=== PATIENT | male | born 1985 | race Caucasian/White ===

== ENCOUNTER 2018-03-31 20:42 | Emergency (ER) | payer MEDICAID ==
[~2018-03-31] VITALS: Ht 180.3 cm; Wt 75.7 kg
[~2018-03-31 20:42] MED LIST: AGM875T PO; BSP10T PO; CEPH500C PO; CYCL10TA9 PO; ESCT10T; FLUO40CA12 PO; IBUP800T26 PO; RSP1T PO; ZEGRID
--- OUTSIDE RECORDS SUMMARY | 2018-03-31 20:47 | XMS REPORT | Continuity of Care Document ---
Author Author [facility] Organization [facility] Address Unknown Phone Unavailable Care Team Providers Care Security Systems Integrator Name Role Phone LINETTE GARAY DO PP Insurance Providers Payer Name Policy Number Subscriber Name Relationship [facility] [id number] [employer] 01 Self / Same As Patient Advance Directives Directive Response Recorded Date Advance Directives N 07/27/12 6:11pm Health Care Power of Automotive Electrician Helper N 07/27/12 6:11pm Organ Donor N 07/27/12 6:11pm Problems No Known Problems or Medical conditions. Family History History Response Recorded Date/Time Hx Family Cancer N 09/17/06 7:06pm Hx Family Cardiac Disorders N 09/17/06 7: 06pm Social History History Response Recorded Date/Time Alcohol Use Rarely Uses 07/27/12 7:48pm Recreational Drug Use Y MARIJUANA 7:48pm Allergies, Adverse Reactions, Alerts Allergen Type Severity Reaction Last Updated NKANo Known Allergies Allergy Unknown 09/17/06 Medications Medication Dose Units Route Sig Qty Days Amoxicillin/Clavulanate Potassium (Augmentin 875-125 Tablet) 1 Tab PO BID 7 Risperidone (Risperdal) 1 Mg PO HS Buspirone HCl (Buspar) 1 Tab PO BID 90 Fluoxetine HCl (Prozac) 40 Mg PO DAILY Cephalexin Monohydrate (Cephalexin) 1 Each PO TID 15 Response Recorded Date/Time Status not known Unknown Results Test Date Result Interp. Ref. Range Acetaminophen Level September 17, 2006 4:10pm < 10 UG/ML L 10.0-30.0 Alanine Aminotransferase (ALT/SGPT) September 18, 2006 4:44am 25 U/L L 30-65 Albumin September 18, 2006 4:44am 2.7 G/DL L 3.4-5.0 Alkaline Phosphatase September 18, 2006 4:44am 65 U/L N 50-136 Aspartate Amino Transf (AST/SGOT) September 18, 2006 4:44am 11 U/L L 15-37 BUN/Creatinine Ratio July 31, 2007 12:30pm 16 - Band Neutrophils September 17, 2006 4:10pm 2 % - Basophils # (Auto) July 31, 2007 12:30pm 0.0 10^3/uL N 0.0-0.1 Basophils % (Manual) September 17, 2006 4:10pm 0 % - Basophils (%) (Auto) July 31, 2007 12:30pm 0 % N 0-10 Blood Urea Nitrogen July 31, 2007 12:30pm 18 MG/DL N 7-18 Calcium Level July 31, 2007 12:30pm 9.7 MG/DL N 8.5-10.1 Carbon Dioxide Level July 31, 2007 12:30pm 21 MMOL/L N 21-32 Chloride Level July 31, 2007 12:30pm 100 MMOL/L L 101-110 Creatinine July 31, 2007 12:30pm 1.1 MG /DL N 0.6-1.3 Eosinophils # (Auto) July 31, 2007 12:30pm 0.0 10^3/uL N 0.0-0.3 Eosinophils % (Manual) September 17, 2006 4:10pm 3 % - Eosinophils (%) (Auto) July 31, 2007 12:30pm 0 % N 0-10 Glucose Level July 31, 2007 12:30pm 110 MG/DL N 70-126 Hematocrit July 31, 2007 12:30pm 46 % N 40-54 Hemoglobin July 31, 2007 12:30pm 16.8 G /DL N 13.3-17.7 Lipase July 31, 2007 12:30pm 182 U/L N 114-286 Lymphocytes # (Auto) July 31, 2007 12:30pm 2.5 X 10^3 N 1.0-4.0 Lymphocytes % (Manual) September 17, 2006 4:10pm 27 % - Lymphocytes (%) (Auto) July 31, 2007 12:30pm 21 % N 12-44 Magnesium Level September 17, 2006 4:10pm 2.5 MG/DL H 1.8-2.4 Mean Corpuscular Hemoglobin July 31, 2007 12:30pm 30 PG N 25-34 Mean Corpuscular Hemoglobin Concent July 31, 2007 12:30pm 36 G/DL N 32-36 Mean Corpuscular Volume July 31, 2007 12:30pm 83 FL N 80-99 Mean Platelet Volume July 31, 2007 12:30pm 9.6 FL N 7.4-10.4 Monocytes # (Auto) July 31, 2007 12:30pm 0.6 X 10^3 N 0.0-1.0 Monocytes % (Manual) September 17, 2006 4:10pm 6 % - Monocytes (%) (Auto) July 31, 2007 12:30pm 5 % N 0-12 Myoglobin September 17, 2006 4:10pm 85 UG/L N 10-92 Neutrophils # (Auto) July 31, 2007 12:30pm 8.7 X 10^3 H 1.8-7.8 Neutrophils % (Manual) September 17, 2006 4:10pm 50 % - Neutrophils (%) (Auto) July 31, 2007 12:30pm 74 % N 42-75 Platelet Count July 31, 2007 12:30pm 371 10^3/uL N 130-400 Potassium Level July 31, 2007 12:30pm 3.5 MMOL/L L 3.6-5.0 Reactive Lymphocytes September 17, 2006 4:10pm 12 % - Red Blood Count July 31, 2007 12:30pm 5.61 10^6/uL N 4.35-5.85 Red Cell Distribution Width July 31, 2007 12:30pm 13.1 % N 10.0-14.5 Salicylates Level September 17, 2006 4:10pm 1.6 MG/DL L 2.8-20.0 Sodium Level July 31, 2007 12:30pm 137 MMOL/L N 135-145 Tear Drop Cells September 17, 2006 4:10pm Slight - Total Bilirubin September 18, 2006 4:44am 0.3 MG/DL N 0.0-1.0 Total Protein September 18, 2006 4:44am 4.9 G /DL L 6.4-8.2 Troponin I September 18, 2006 4:44am < 0.10 MG/ML 0.00-0.10 Ur Tricyclic Antidepressants Screen September 18, 2006 2:50am Negative - Urine Amphetamines Screen September 18, 2006 2:50am Negative - Urine Barbiturates Screen September 18, 2006 2:50am Negative - Urine Benzodiazepines Screen September 18, 2006 2:50am Negative - Urine Cocaine Screen September 18, 2006 2:50am Negative - Urine Methamphetamines Screen September 18, 2006 2:50am Negative - Urine Opiates Screen September 18, 2006 2:50am Negative - Urine Phencyclidine Screen September 18, 2006 2:50am Negative - Urine Propoxyphene Screen September 18, 2006 2:50am Negative - White Blood Count July 31, 2007 12:30pm 11.9 10^3/uL H 4.3-11.0 Pathology Consult Specimen September 17, 2006 4:10pm See report - Estimat Glomerular Filtration Rate July 31, 2007 12:30pm > 60 - Urine Oxycodone Screen September 18, 2006 2:50am Negative - Urine Methadone Screen September 18, 2006 2:50am Negative - Creatine Kinase September 18, 2006 4:44am 89 mg/dl N 21-170 Urine Cannabinoids Screen September 18, 2006 2:50am Positive - Procedures Procedure Code Date ESOPHAGOGASTRODUODENOSCOPY [EGD] W/CLOSED BIOPSY 45.16 09/18/06 Encounters Encounter Location Date/Time Registered Emergency Room [facility] 07/27/12 6:05pm Departed Emergency Room [facility] 05/23 2:32pm Discharged Inpatient [facility] 12: 00am
--- OUTSIDE RECORDS SUMMARY | 2018-03-31 20:47 | XMS REPORT | Continuity of Care Document ---
Author Author Former[facility] Address Unknown Phone Unavailable Allergies Active Description Code Type Severity Reaction Onset Reported/Identified Relationship to Patient Clinical Status Yes No Known Drug Allergies [id number] Miscellaneous Allergy Moderate N/A Yes NKDA N/A N/A Yes NKANo Known Allergies NKA Miscellaneous Allergy Unknown N/A 09/17/2006 Medications Medication Packaging Start Date Stop Date Route Dosage Sig RISPERDAL ORAL 12/25/2015 [facility], REMERON ORAL 12/25/2015 [facility], Problems Date Dx Coded Attending Type Code Diagnosis Diagnosed By 01/08/2009 DAMARI ROONEY DO 296.80 MO BIPOLAR NOS 01/08/2009 DAMARI ROONEY DO 300.00 AN ANXIETY UNSPEC 01/08/2009 DAMARI ROONEY DO 296.80 MO BIPOLAR NOS 01/08/2009 DAMARI ROONEY DO 300.00 AN ANXIETY UNSPEC 01/31/2009 DAMARI ROONEY DO 296.89 MO BIPOLAR II 01/31/2009 DAMARI ROONEY DO 296.89 MO BIPOLAR II 02/07/2011 DAMARI ROONEY DO 296.90 MOOD DISORDER 02/07/2011 DAMARI ROONEY DO 300.23 AN SOCIAL PHOBIA 02/07/2011 DAMARI ROONEY DO 307.47 SI DYSSOMNIA NOS 02/07/2011 DAMARI ROONEY DO 296.90 MOOD DISORDER 02/07/2011 DAMARI ROONEY DO 300.23 AN SOCIAL PHOBIA 02/07/2011 DAMARI ROONEY DO 307.47 SI DYSSOMNIA NOS 02/18/2011 DAMARI ROONEY DO 305.00 ALCOHOL ABUSE UNSPEC 02/18/2011 DAMARI ROONEY DO 305.20 CANNABIS ABUSE 02/18/2011 DAMARI ROONEY DO 312.30 I IMPULSE CONTROL DISORDER NOS 02/18/2011 DAMARI ROONEY DO 305.00 ALCOHOL ABUSE UNSPEC 02/18/2011 DAMARI ROONEY DO 305.20 CANNABIS ABUSE 02/18/2011 DAMARI ROONEY DO 312.30 I IMPULSE CONTROL DISORDER NOS 06/29/2011 DAMARI ROONEY DO 296.42 MO BIPOLAR I MANIC MODERATE 06/29/2011 DAMARI ROONEY DO 296.42 MO BIPOLAR I MANIC MODERATE 07/08/2011 DAMARI ROONEY DO 296.41 MO BIPOLAR I MANIC MILD 07/08/2011 DAMARI ROONEY DO 296.41 MO BIPOLAR I MANIC MILD 07/15/2011 DAMARI ROONEY DO 296.52 MO BIPOLAR I DEPRESSED MODERATE 07/15/2011 DAMARI ROONEY DO F 304.80 SA POLYSUB DEP 07/15/2011 DAMARI ROONEY DO 296.52 MO BIPOLAR I DEPRESSED MODERATE 07/15/2011 DAMARI ROONEY DO 304.80 SA POLYSUB DEP 08/11/2011 DAMARI ROONEY DO 296.60 MO BIPOLAR I MIXED UNSPECIFIED 08/11/2011 DAMARI ROONEY DO 296.60 MO BIPOLAR I MIXED UNSPECIFIED 08/18/2011 DAMARI ROONEY DO 461.9 SINUSITIS ACUTE 08/18/2011 DAMARI ROONEY DO 530.81 GERD 08/18/2011 DAMARI ROONEY DO 706.2 SEBACEOUS CYST 08/18/2011 DAMARI ROONEY DO 461.9 SINUSITIS ACUTE 08/18/2011 DAMARI ROONEY DO 530.81 GERD 08/18/2011 DAMARI ROONEY DO 706.2 SEBACEOUS CYST 09/24/2011 DAMARI ROONEY DO 303.90 OTHER AND UNSPECIFIED ALCOHOL DEPENDENCE UNSPECIFIED DRINKING BEHAVIOR 09/24/2011 DAMARI ROONEY DO 303.90 OTHER AND UNSPECIFIED ALCOHOL DEPENDENCE UNSPECIFIED DRINKING BEHAVIOR 11/19/2011 DAMARI ROONEY DO 296.50 MO BIPOLAR I DEPRESSED UNSPECIFIED 11/19/2011 DAMARI ROONEY DO 296.50 MO BIPOLAR I DEPRESSED UNSPECIFIED 02/16/2012 DAMARI ROONEY DO V58.69 MEDICATION HIGH RISK 02/16/2012 DAMARI ROONEY DO V58.69 MEDICATION HIGH RISK Procedures Code Description [place] [address] ROUTINE VENIPUNCTURE 02/16/2012 01573 INR (IN HOUSE) 02/16/2012 26375 CBC 02/16/2012 00176 LIVER PANEL (LFT) 02/16/2012 82619 LIPID PANEL 02/16/2012 3068424 GFR CALC (RESULT ONLY) 02/16/2012 25169 RENAL PROFILE 02/17/2012 19833 TSH 02/17/2012 59093 ETHANOL SCREEN 02/17/2012 68317 VITAMIN D 25-HYDROXY (D2,D3 , TOTAL) 02/17/2012 93654 DRUG BLOOD SCREEN 02/19/2012 33108 PSYCH PHARM MGMT 02/19/2012 80858 UA W/ CULTURE IF INDICATED 02/26/2012 47206 URINE DRUG SCREEN (IN-HOUSE ) 03/02/2012 Results Test Result Range CBC NO DIFF - 12/24/15 21:34 FINGER STICK NO WBC 9.6 10^3uL 4.0 - 11.0 RBC 5.13 10^6uL 4.20 - 5.40 HEMOGLOBIN 15.4 g/dL 13.5 - 16.0 HEMATOCRIT 45.7 % 35.0 - 58.0 MCV 89.1 fl 78.0 - 95.0 MCH 30.0 pg 25.0 - 35.0 MCHC 33.7 g/dL 32.0 - 36.0 RDW 12.6 % 11.5 - 14.5 PLATELETS 360 10^3uL 130 - 400 CBCNODIFF COMP METABOLIC PROFILE - 12/24/15 21:34 COMPMETABOLICPROFILE FASTING SPECIMEN? NO FINGER STICK NO SODIUM 141 mmol/L 136 - 145 POTASSIUM 3.7 mmol/L 3.5 - 4.8 CHLORIDE 104 mmol/L 98 - 107 TOTAL CO2 28 mmol/L 21 - 32 GLUCOSE 100 mg/dL 65 - 110 BUN 16 mg/dL 7 - 18 CREATININE 1.2 mg/dL 0.8 - 1.1 TOTAL BILI 0.5 mg/dL 0.0 - 1.0 DIRECT BILI 0.1 mg/dL 0.0 - 0.3 INDIRECT BILI 0.4 mg/dl 0.1 - 1.0 ALKALINE PHOS 74 U/L 50 - 136 SGPT/ALT 26 U/L 12 - 78 SGOT/AST 17 U/L 15 - 45 TOTAL PROTEIN 7.5 g/dL 6.4 - 8.2 ALBUMIN 4.2 g/dL 3.4 - 5.6 CALCIUM 9.0 mg/dL 8.5 - 10.0 AGE 30 YEARS GFR 75 ml/min/1.7 eGFR >60 mL/min/1.7 GFR >60 mL/min/1.7 TROP I - 12/24/15 21:34 TROP I <0.02 ng/ml 0.00 - 0.06 Encounters ACCT No. Visit Date/Time Discharge Status Pt. Type Provider Facility Loc./Unit Complaint [id number] 03/25/2012 13:30:00 03/25/2012 23:59:59 [place] [id number] 02/16/2012 12:01:00 02/16/2012 23:59:59 CLS Outpatient DAMARI ROONEY DO [id number] 10/10/2013 12:13:00 10/10/2013 12:54:00 DIS Emergency [id number] 07/27/2012 18:05:00 07/27/2012 20:08:00 DIS Emergency [id number] 03/31/2018 20:43:00 ACT Emergency RYAN LAND APRN [facility] ER FEET SWELLING,CP,ANXIETY [id number] 12/30/2015 08:52:20 12/30/2015 08:52:20 DIS Outpatient [id number] 12/24/2015 20:38:00 12/24/2015 22:20:00 DIS Emergency JOSS ORTIZ [facility] 042
[2018-03-31 21:20] LABS: BASOPHILS % (AUTO) 0 % (0-10); EOSINOPHILS # (AUTO) 0.6 10^3/uL (0.0-0.3); EOSINOPHILS % (AUTO) 7 % (0-10); HEMATOCRIT 43 % (40-54); HEMOGLOBIN 14.7 G/DL (13.3-17.7); LYMPHOCYTES # (AUTO) 2.4 X 10^3 (1.0-4.0); LYMPHOCYTES % (AUTO) 25 % (12-44); MEAN CORPUSCULAR HEMOGLOBIN 30 PG (25-34); MEAN CORPUSCULAR HGB CONC 34 G/DL (32-36); MEAN CORPUSCULAR VOLUME 88 FL (80-99); MEAN PLATELET VOLUME 8.3 FL (7.4-10.4); MONOCYTES # (AUTO) 1.1 X 10^3 (0.0-1.0); MONOCYTES % (AUTO) 11 % (0-12); NEUTROPHILS # (AUTO) 5.6 X 10^3 (1.8-7.8); NEUTROPHILS % (AUTO) 57 % (42-75); PLATELET COUNT 407 10^3/uL (130-400); RED BLOOD COUNT 4.96 10^6/uL (4.35-5.85); RED CELL DISTRIBUTION WIDTH 12.9 % (10.0-14.5); WHITE BLOOD COUNT 9.7 10^3/uL (4.3-11.0)
--- NOTE | 2018-03-31 21:23 | ED Lower Extremity ---
General Chief Complaint: Lower Extremity Stated Complaint: FEET SWELLING,CP,ANXIETY Nursing Triage Note: BILATERAL LEG PAIN/SWELLING X3 DAYS, REFLUX, CHEST WALL PAIN X3 WEEKS Nursing Sepsis Screen: No Definite Risk Source: patient Exam Limitations: no limitations History of Present Illness Date Seen by Provider: Mar 31, 2018 Time Seen by Provider: 21:19 Initial Comments To ER with reports of bilateral feet redness and swelling for 3 days. No known injury or preceding event. No fevers but he does have chills. He states that he has a chronic cough unchanged. He is a smoker. He reports acid reflux his whole life but worse for the past several weeks and left sided chest wall pain separate from the acid reflux also present for 3 weeks. That pain is intermittent and lasts for about a second at a time and is described as a sharp pain. He cannot identify any modifying factors. He denies any IV drug use Onset: other Severity: moderate Pain/Injury Location: bilateral foot Method of Injury: unknown Allergies and Home Medications Allergies Coded Allergies: NKANo Known Allergies (Verified Allergy, Unknown, 09/17/06) Home Medications Azithromycin 250 Mg Tablet, 250 MG PO UD TAKE 2 TABLETS TODAY, THEN TAKE 1 TABLET DAILY FOR 4 MORE DAYS Prescribed by: RYAN LAND on 03/31/18 2333 Cephalexin 500 Mg Capsule, 500 MG PO Q6H Prescribed by: RYAN LAND on 03/31/18 2306 Patient Home Medication List Home Medication List Reviewed: Yes Review of Systems Constitutional: see HPI EENTM: see HPI Respiratory: no symptoms reported Cardiovascular: see HPI, chest pain; No Hx of Intervention, No palpitations, No syncope, No vascular heart diseas Genitourinary: no symptoms reported Musculoskeletal: see HPI Skin: see HPI Past Jpezeie-Xgmewb-Lhmyik Hx Patient Social History Alcohol Use: Denies Use Recreational Drug Use: Yes Drug of Choice: CANNIBUS/METH Smoking Status: Current Everyday Smoker Type Used: Cigarettes 2nd Hand Smoke Exposure: Yes Recent Foreign Travel: No Contact w/Someone Who Travel: No Recent Infectious Disease Expo: No Recent Hopitalizations: No Immunizations Up To Date Tetanus Booster (TDap): Less than 5yrs Seasonal Allergies Seasonal Allergies: No Past Medical History Surgeries: Yes Orthopedic Respiratory: No Cardiac: No Neurological: No Reproductive Disorders: No Genitourinary: No Gastrointestinal: Yes Gastroesophageal Reflux, Ulcer Musculoskeletal: No Endocrine: No HEENT: No Cancer: No Psychosocial: Yes Anxiety, Depression Integumentary: No Blood Disorders: No Family Medical History No Pertinent Family Hx Physical Exam Vital Signs Vital Signs - First Documented 03/31/18 20:45 Temp 97.2 Pulse 108 Resp 18 B/P (MAP) 137/73 (94) Pulse Ox 99 O2 Delivery Room Air Capillary Refill : Less Than 3 Seconds Height, Weight, BMI Height: 5'11.00" Weight: 167lbs. oz. 75.330291yx; 19.37 BMI Method:Stated General Appearance: WD/WN, no apparent distress HEENT: PERRL/EOMI, normal ENT inspection Neck: non-tender, full range of motion Cardiovascular: regular rate, rhythm, no murmur Respiratory: no respiratory distress, no accessory muscle use Gastrointestinal: normal bowel sounds, non tender Hips: bilateral hip non-tender, bilateral hip normal inspection, bilateral hip normal range of motion Legs: bilateral leg non-tender, bilateral leg normal inspection, bilateral leg normal range of motion Knees: bilateral knee non-tender, bilateral knee normal inspection, bilateral knee normal range of motion Ankles: bilateral ankle non-tender, bilateral ankle normal inspection, bilateral ankle normal range of motion Feet: bilateral foot other (there is a petechial/erythematous fine nonblanching rash to the dorsal aspect of each foot terminating at the ankle. I would suspect a vasculitis. This does not extend proximally into the legs and neither leg has any redness.) Neurologic/Psychiatric: alert, normal mood/affect, oriented x 3 Skin: normal color, warm/dry Progress/Results/Core Measures Results/Orders Lab Results Laboratory Tests Test 03/31/18 21:10 Range/Units White Blood Count 9.7 4.3-11.0 10^3/uL Red Blood Count 4.96 4.35-5.85 10^6/uL Hemoglobin 14.7 13.3-17.7 G/DL Hematocrit 43 40-54 % Mean Corpuscular Volume 88 80-99 FL Mean Corpuscular Hemoglobin 30 25-34 PG Mean Corpuscular Hemoglobin Concent 34 32-36 G/DL Red Cell Distribution Width 12.9 10.0-14.5 % Platelet Count 407 H 130-400 10^3/uL Mean Platelet Volume 8.3 7.4-10.4 FL Neutrophils (%) (Auto) 57 42-75 % Lymphocytes (%) (Auto) 25 12-44 % Monocytes (%) (Auto) 11 0-12 % Eosinophils (%) (Auto) 7 0-10 % Basophils (%) (Auto) 0 0-10 % Neutrophils # (Auto) 5.6 1.8-7.8 X 10^3 Lymphocytes # (Auto) 2.4 1.0-4.0 X 10^3 Monocytes # (Auto) 1.1 H 0.0-1.0 X 10^3 Eosinophils # (Auto) 0.6 H 0.0-0.3 10^3/uL Basophils # (Auto) 0.0 0.0-0.1 10^3/uL Erythrocyte Sedimentation Rate 7 0-15 MM/HR D-Dimer 0.72 H 0.00-0.49 UG/ML Sodium Level 145 135-145 MMOL/L Potassium Level 3.6 3.6-5.0 MMOL/L Chloride Level 104 98-107 MMOL/L Carbon Dioxide Level 25 21-32 MMOL/L Anion Gap 16 H 5-14 MMOL/L Blood Urea Nitrogen 17 7-18 MG/DL Creatinine 1.08 0.60-1.30 MG/DL Estimat Glomerular Filtration Rate > 60 BUN/Creatinine Ratio 16 Glucose Level 138 H 70-105 MG/DL Calcium Level 9.1 8.5-10.1 MG/DL Corrected Calcium 9.0 8.5-10.1 MG/DL Total Bilirubin 0.3 0.1-1.0 MG/DL Aspartate Amino Transf (AST/SGOT) 16 5-34 U/L Alanine Aminotransferase (ALT/SGPT) 28 0-55 U/L Alkaline Phosphatase 82 40-136 U/L C-Reactive Protein High Sensitivity 1.68 H 0.00-0.50 MG/DL B-Type Natriuretic Peptide < 10.0 <100.0 PG/ML Total Protein 6.8 6.4-8.2 GM/DL Albumin 4.1 3.2-4.5 GM/DL My Orders Orders - RYAN LAND APRN Cbc With Automated Diff (03/31/18 21:07) Comprehensive Metabolic Panel (03/31/18 21:07) Hs C Reactive Protein (03/31/18 21:07) Erythrocyte Sedimentation Rate (03/31/18 21:07) Iv Heplock-Insert (Order) (03/31/18 21:07) Chest Pa/Lat (2 View) (03/31/18 21:07) BNP (03/31/18 21:07) Ekg Tracing (03/31/18 21:18) Continuous Ekg Monitoring (03/31/18 21:18) Antacid Suspension (Mylanta Suspension (03/31/18 21:30) Lidocaine 2% Viscous 15 Ml (Xylocaine Vi (03/31/18 21:30) Ketorolac Injection (Toradol Injection) (03/31/18 21:30) Fibrin Degradation Products (03/31/18 22:10) Ct Angio Chest W (03/31/18 22:36) Cephalexin Capsule (Keflex Capsule) (03/31/18 23:15) Dexamethasone Injection (Decadron Inject (03/31/18 23:15) Iohexol Injection (Omnipaque 350 Mg/Ml 1 (03/31/18 23:30) Contrast Received (Contrast Received) (03/31/18 23:30) Ns (Ivpb) (Sodium Chloride 0.9% Ivpb Bag (03/31/18 23:30) Medications Given in ED Current Medications Medications Dose Ordered Sig/Rebecca Route Start Time Stop Time Status Last Admin Dose Admin Al Hydrox/Mg Hydrox/Simethicone 30 ml ONCE ONCE PO 03/31/18 21:30 03/31/18 21:31 DC 03/31/18 21:27 30 ML Cephalexin HCl 500 mg ONCE ONCE PO 03/31/18 23:15 03/31/18 23:16 DC 03/31/18 23:14 500 MG Dexamethasone Sodium Phosphate 10 mg ONCE ONCE IV 03/31/18 23:15 03/31/18 23:16 DC 03/31/18 23:14 10 MG Iohexol 150 ml ONCE ONCE IV 03/31/18 23:30 03/31/18 23:31 DC 03/31/18 23:26 125 ML Ketorolac Tromethamine 30 mg ONCE ONCE IVP 03/31/18 21:30 18 21:31 DC 03/31/18 21:27 30 MG Lidocaine HCl 10 ml ONCE ONCE PO 03/31/18 21:30 18 21:31 DC 03/31/18 21:27 10 ML Sodium Chloride 100 ml ONCE ONCE IV 03/31/18 23:30 03/31/18 23:31 DC 03/31/18 23:26 80 ML Vital Signs/I&O 03/31/18 03/31/18 20:45 21:27 Temp 97.2 97.2 Pulse 108 Resp 18 B/P (MAP) 137/73 (94) Pulse Ox 99 O2 Delivery Room Air Blood Pressure Mean: 94 Departure Communication (Admissions) I will give the patient a dose of steroids due to the possibility of a vasculitis feet. However his mother states that he has been off of his medications for bipolar and seems manic with rapid mood fluctuations lately. I am A bit hesitant to prescribe an extended course for high dosages of steroids. 2339-I discussed the case with on-call hospitalist Dr. Sawant. He recommends discharge to home, follow-up with pulmonology. 2345- CT report shows no pulmonary emboli. There are bilateral peripheral pulmonary nodules with surrounding stranding and mediastinal and hilar adenopathy is suspicious for atypical infection such as fungal pneumonia. Impression Primary Impression: Erythema of lower extremity Additional Impression: Pleuritic chest pain Disposition: HOME, SELF-CARE Condition: Stable Departure-Patient Inst. Decision time for Depature: 22:10 Referrals: NIALL HUBER,LOCAL PHYSICIAN (PCP) Primary Care Physician Patient Instructions: General (DC) Add. Discharge Instructions: 1. Elevate your feet as much as possible. Tylenol and Motrin for pain control. Follow-up with your regular doctor tomorrow. Call for an appointment time at 8 AM. Antibiotics as directed. If you do not have a physician, call [facility] at [phone] for follow-up. Return promptly to the emergency room for any high fevers shortness of breath or other concerns. All discharge instructions reviewed with patient and/or family. Voiced understanding. Scripts Azithromycin (Zithromax) 250 Mg Tablet 250 MG PO UD, #6 TAB TAKE 2 TABLETS TODAY, THEN TAKE 1 TABLET DAILY FOR 4 MORE DAYS Prov: RYAN LAND RECREATION ESTABLISHMENT MANAGER 03/31/18 Cephalexin (Keflex) 500 Mg Capsule 500 MG PO Q6H, #28 CAP Prov: RYAN LAND RECREATION ESTABLISHMENT MANAGER 03/31/18 RYAN LAND APRN Mar 31, 2018 21:23
[2018-03-31] MEDS: LIDOCAINE 2% VISCOUS 15 ML UDC PO ONE (21:27)
[2018-03-31] MEDS: ANTACID SUSP 30 ML UDC (MYLANTA) PO ONE (21:27)
[2018-03-31] MEDS: KETOROLAC 30 MG/ML VIAL IVP ONE (21:27)
[2018-03-31 21:39] LABS: ALANINE AMINOTRANSFERASE 28 U/L (0-55); ALBUMIN 4.1 GM/DL (3.2-4.5); ALKALINE PHOSPHATASE 82 U/L (40-136); BILIRUBIN,TOTAL 0.3 MG/DL (0.1-1.0); BUN/CREATININE RATIO 16; CALCIUM 9.1 MG/DL (8.5-10.1); CARBON DIOXIDE 25 MMOL/L (21-32); CHLORIDE 104 MMOL/L (98-107); CREATININE SERUM 1.08 MG/DL (0.60-1.30); GFR ESTIMATED > 60; GLUCOSE 138 MG/DL (70-105); POTASSIUM 3.6 MMOL/L (3.6-5.0); SODIUM 145 MMOL/L (135-145); TOTAL PROTEIN 6.8 GM/DL (6.4-8.2)
[2018-03-31 21:52] LABS: ERYTHROCYTE SEDIMENTATION RATE 7 MM/HR (0-15)
--- NOTE | 2018-03-31 22:18 | Diagnostic Imaging Report ---
Clinical indication: Patient with chest wall pain x 3 weeks. Exam: Chest x-ray PA and lateral views. Comparisons: Chest x-ray dated 09/15/2006. Findings: Lungs/pleura: Lungs are clear. There is no pneumothorax. There is no pleural effusion. Mediastinum: Unremarkable. Pulmonary vasculature: Unremarkable. Heart: Unremarkable. Bones/extrathoracic soft tissue: Unremarkable. Impression: There is no radiographic evidence of acute cardiopulmonary process. Dictated by: Dictated on workstation # [id number]
[2018-03-31] MEDS ORDERED: CEPH-507 PO (23:06)
[2018-03-31] MEDS: CEPHALEXIN 250 MG (KEFLEX) CAP PO ONE (23:14)
[2018-03-31] MEDS: DEXAMETHASONE 10 MG/ML (DECADRON) 1 ML VIAL IV ONE (23:14)
[2018-03-31] MEDS: NS 100 ML (IVPB) BAG IV ONE (23:26)
[2018-03-31] MEDS: IOHEXOL 350 MG/ML 150 ML (OMNIPAQUE 350) VIAL IV ONE (23:26)
[2018-03-31] MEDS ORDERED: RECEIVED CONTRAST (Hold Metformin) IV SCH (23:30)
[2018-03-31] MEDS ORDERED: AZIT250T PO (23:33)
[2018-03-31 23:59] VITALS: BP 101/64
--- NOTE | 2018-04-01 07:21 | Diagnostic Imaging Report ---
PROCEDURE: CT angiography of the chest with contrast. TECHNIQUE: Multiple contiguous axial images were obtained through the chest after uneventful bolus administration of intravenous contrast. 2D reconstructed CTA MIP acquisitions were also performed. INDICATION: Chest wall pain There is no previous study available at this time for comparison. There is good opacification of pulmonary arteries without intraluminal filling defect. Thoracic aorta is unremarkable in appearance. There are prominent lymph nodes in the mediastinum and both pulmonary ramona. Largest lymph node measures 2.1 x 1.6 cm in the inferior left hilum. Largest mediastinal lymph node is in the aorticopulmonary window reaching 1.1 x 2.4 cm. In addition, there are peripheral nodular foci of apparent infiltrate in the lungs. The largest is in the subpleural aspect of the left lower lobe reaching 1.5 cm. More rounded nodule seen in the anterolateral left upper lobe reaching 1.0 cm. There is an approximately 0.7 cm infrahilar nodule in the left lower lobe. There may be osteochondroma involving proximal aspect of the right seventh rib, medially. There is no significant pleural or pericardial fluid. The stomach is distended with gas and fluid. There is an approximately 0.9 cm nodular focus in the lumen of the stomach anteriorly which may represent gastric polyp. IMPRESSION: No CTA evidence of pulmonary embolism, however, there is mild mediastinal and bilateral hilar adenopathy. Clinical correlation is recommended. This could be reactive to infection, however, other considerations would include lymphoma. 0.9 cm nodular focus in the anti-dependent portion of the stomach could represent a polyp. Peripheral nodular areas of parenchymal density in both lungs could represent areas of atypical infection. Other consideration would include infection or infarcts from small emboli, either septic or bland. Dictated by: Dictated on workstation # [id number]
== END 2018-03-31 23:53 | disposition home or self-care (01) ==
LOC: EDUNIT# 20:42 → ER 20:43
DX: L53.9 Erythematous condition, unspecified (principal); R07.81 Pleurodynia; K21.9 Gastro-esophageal reflux disease without esophagitis; F41.9 Anxiety disorder, unspecified; F32.9 Major depressive disorder, single episode, unspecified; F17.210 Nicotine dependence, cigarettes, uncomplicated; F12.10 Cannabis abuse, uncomplicated; F15.10 Other stimulant abuse, uncomplicated
CPT/HCPCS: 36415; 71046; 71275; 80053; 83880; 85025; 85379; 85652; 86141; 93041; 96374; 96375

== ENCOUNTER 2019-03-10 00:46 | Emergency (ER) | payer MEDICAID, OTHER ==
[~2019-03-10] VITALS: Ht 180 cm; Wt 75.8 kg
[~2019-03-10 00:46] MED LIST changes: +AZIT250T PO; +CEPH-507 PO
[2019-03-10] MEDS ORDERED: EPINEPHrine INJECTION 1 MG/ML AMP IM/IV/SC ONE (00:52)
[2019-03-10] MEDS ORDERED: MIDAZOLAM 2 MG/2 ML (VERSED) VIAL ONE (00:52)
[2019-03-10] MEDS ORDERED: fentaNYL INJECTION 100 MCG/2 ML AMP ONE (00:52)
[2019-03-10 01:12] VITALS: BP 0/0
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
[2019-03-10] MEDS ORDERED: EPINEPHrine INJECTION 1 MG/ML AMP IV STA ×3 (02:17)
[2019-03-10] MEDS ORDERED: fentaNYL INJECTION 100 MCG/2 ML AMP IVP STA (02:17)
[2019-03-10] MEDS ORDERED: NS IV 1000 ML 1,000 ML IV STA (02:17)
[2019-03-10] MEDS ORDERED: MIDAZOLAM 5 MG/5 ML (VERSED) VIAL IVP STA (02:17)
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
[2019-03-10] MEDS ORDERED: LACTATED RINGERS 1,000 ML IV ONE ×2 (02:30→06:50)
[2019-03-10] MEDS ORDERED: EPINEPHrine INJECTION 1 MG/ML AMP IV ONE (02:30)
--- NOTE | 2019-03-10 03:35 | NUR ---
possession of body signed over to hilton narayan to transport body to [facility] in [facility].
[2019-03-10] MEDS ORDERED: NS IV 1000 ML 1,000 ML ONE (06:50)
== END 2019-03-10 04:03 | disposition expired ==
LOC: MERGE 00:51 → EDBD 00:51 → ER 00:51
DX: S01.93XA Puncture wound without foreign body of unspecified part of head, initial encounter (principal); I46.9 Cardiac arrest, cause unspecified; F15.10 Other stimulant abuse, uncomplicated; F12.10 Cannabis abuse, uncomplicated; K21.9 Gastro-esophageal reflux disease without esophagitis; F41.9 Anxiety disorder, unspecified; F32.9 Major depressive disorder, single episode, unspecified; F17.200 Nicotine dependence, unspecified, uncomplicated; R40.2112 Coma scale, eyes open, never, at arrival to emergency department; R40.2222 Coma scale, best verbal response, incomprehensible words, at arrival to emergency department; R40.2312 Coma scale, best motor response, none, at arrival to emergency department; W34.00XA Accidental discharge from unspecified firearms or gun, initial encounter
CPT/HCPCS: 31500; 99291; 99292